=== PATIENT | female | born 1975 | race Caucasian/White ===

== ENCOUNTER 2017-04-01 02:03 | Emergency (ER) | payer OTHER ==
--- NOTE | 2017-04-01 02:23 | EDPHY ---
H & P Stated Complaint: CRAMPING DIARRHEA FELT NAUSEA AND LIKE PASSING OUT. HPI/ROS: HPI CHIEF COMPLAINT: Abdominal cramping, diarrhea, nausea, lightheadedness, presyncope HISTORY OF PRESENT ILLNESS: This patient very pleasant 42-year-old female she presents emergency room at 2:30 a.m. in the morning feeling as if she was going to pass out with lightheadedness, nausea, and abdominal cramping and diarrhea. Patient states she woke up from sleep she felt as if she had to go the bathroom with abdominal cramps she states when she went to try to get to the bathroom at home she felt very lightheaded she felt sweaty and nauseous and felt like she was going to pass out. She denies chest pain or shortness of breath. She states she does have abdominal cramps. She has been having watery brown diarrhea. She did have a beer and pizza tonight she tells me this is not normally what she eats. She also tells me distally for the past year she has had abdominal bloating and abdominal cramping and irregular stools, the includes sometimes diarrhea sometimes hard stool sometimes constipation. She states she is being followed by GI and thought to have bacterial overgrowth however they are still trying to figure out why she is having yearly abdominal bloating. Past Medical History: Denies significant medical history Past Surgical History: Denies significant surgical history except for Social History: Denies daily use of drugs alcohol tobacco products Family History: Noncontributory ROS REVIEW OF SYSTEMS: A comprehensive 10 point review of systems is otherwise negative aside from elements mentioned in the history of present illness. Exam Constitutional appears well nontoxic triage nursing summary reviewed, vital signs reviewed, awake/alert. Eyes normal conjunctivae and sclera, EOMI, PERRLA. HENT normal inspection, atraumatic, moist mucus membranes, no epistaxis, neck supple/ no meningismus, no raccoon eyes. Respiratory clear to auscultation bilaterally, normal breath sounds, no respiratory distress, no wheezing. Cardiovascular rate normal, regular rhythm, no murmur, no edema, distal pulses normal. Gastrointestinal soft, non-tender, no rebound, no guarding, normal bowel sounds, no distension, no pulsatile mass. Genitourinary no CVA tenderness. Musculoskeletal no midline vertebral tenderness, full range of motion, no calf swelling, no tenderness of extremities, no meningismus, good pulses, neurovascularly intact. Skin pink, warm, & dry, no rash, skin atraumatic. Neurologic awake, alert and oriented x 3, AAOx3, moves all 4 extremities equally, motor intact, sensory intact, CN II-XII intact, normal cerebellar, normal vision, normal speech. Psychiatric normal mood/affect. Heme/Lymph/Immune no lymphadenopathy. Differential Diagnosis: Includes but is not limited to in a particular order, dehydration, electrolyte disturbance, diarrheal illness, food borne illness. Medical Decision Making: Plan for this patient IV establishment, full hot worker, check EKG, check electrolytes, troponin, give IV fluids 1 L normal saline bolus, IV Zofran for nausea. Re-evaluate. Re-evaluation: EKG interpretation by me on record in [employer] system. Impression time of EKG 321: Sinus rhythm rate of 56, left axis deviation present. Otherwise no acute ischemia. 0404AM: Re-evaluation at this time this patient is feeling much better. She is not vomiting. Abdomen remained soft. No significant diarrhea here in the emergency room. She received IV Zofran and IV fluids she is feeling much better. Blood work has been reviewed is reassuring. Negative troponin nonischemic EKG. Electrolytes are appropriate. 0440AM: Re-evaluation patient resting comfortably 2nd L fluid is done. She is ready to go home. She understands return emergency room she develops worsening abdominal pain fever vomiting. Source: Patient - Personal History LMP (Females 10-55): 1-7 Days Ago Current Tetanus/Diphtheria Vaccine: Yes Current Tetanus Diphtheria and Acellular Pertussis (TDAP): Yes Tetanus Vaccine Date: 2006 - Medical/Surgical History Hx Asthma: No Hx Chronic Respiratory Disease: No Hx Diabetes: No Hx Cardiac Disease: No Hx Renal Disease: No Hx Cirrhosis: No Hx Alcoholism: No Hx HIV/AIDS: No Hx Splenectomy or Spleen Trauma: No Other PMH: DENIES - Social History Smoking Status: Never smoked Constitutional: Initial Vital Signs Heart Rate 58 L 04/01/17 02:18 Respiratory Rate 18 04/01/17 02:18 Blood Pressure 109/70 04/01/17 02:18 O2 Sat (%) 96 04/01/17 02:18 O2 Delivery Mode Room Air Allergies/Adverse Reactions: amoxicillin trihydrate [From Augmentin] Allergy (Verified 04/01/17 02:20) potassium clavula *RETIRED-07/09/12 [From Augmentin] Allergy (Verified 04/01/17 02:20) Home Medications: Medication Instructions Recorded NK [No Known Home Meds] 04/01/17 Medical Decision Making - Data Points Laboratory Results: Laboratory Results 04/01/17 03:00 04/01/17 03:00 04/01/17 04/01/17 03:00 03:00 WBC 13.12 10^3/uL H 10^3/uL (3.80-9.50) RBC 4.52 10^6/uL 10^6/uL (4.18-5.33) Hgb 14.4 g/dL g/dL (12.6-16.3) Hct 41.7 % % (38.0-47.0) MCV 92.3 fL fL (81.5-99.8) MCH 31.9 pg pg (27.9-34.1) MCHC 34.5 g/dL g/dL (32.4-36.7) RDW 12.6 % % (11.5-15.2) Plt Count 315 10^3/uL 10^3/uL (150-400) MPV 8.6 fL L fL (8.7-11.7) Neut % (Auto) 77.2 % H % (39.3-74.2) Lymph % (Auto) 13.5 % L % (15.0-45.0) [place] % (Auto) 6.9 % % (4.5-13.0) Eos % (Auto) 1.2 % % (0.6-7.6) Baso % (Auto) 0.8 % % (0.3-1.7) Nucleat RBC Rel Count 0.0 % % (0.0-0.2) Absolute Neuts (auto) 10.14 10^3/uL H 10^3/uL (1.70-6.50) Absolute Lymphs (auto) 1.77 10^3/uL 10^3/uL (1.00-3.00) Absolute Monos (auto) 0.90 10^3/uL H 10^3/uL (0.30-0.80) Absolute Eos (auto) 0.16 10^3/uL 10^3/uL (0.03-0.40) Absolute Basos (auto) 0.10 10^3/uL 10^3/uL (0.02-0.10) Absolute Nucleated RBC 0.00 10^3/uL 10^3/uL (0-0.01) Immature Gran % 0.4 % % (0.0-1.1) Immature Gran # 0.05 10^3/uL 10^3/uL (0.00-0.10) Sodium 140 mEq/L mEq/L (134-144) Potassium 4.0 mEq/L mEq/L (3.5-5.2) Chloride 104 mEq/L mEq/L (97-110) Carbon Dioxide 25 mEq/l mEq/l (22-31) Anion Gap 11 mEq/L mEq/L (8-16) BUN 22 mg/dL mg/dL (7-23) Creatinine 0.9 mg/dL mg/dL (0.6-1.0) Estimated GFR > 60 Glucose 104 mg/dL H mg/dL (70-100) Calcium 9.4 mg/dL mg/dL (8.5-10.4) Total Bilirubin 0.8 mg/dL mg/dL (0.1-1.4) Conjugated Bilirubin 0.5 mg/dL mg/dL (0.0-0.5) Unconjugated Bilirubin 0.3 mg/dL mg/dL (0.0-1.1) AST 28 IU/L IU/L (14-46) ALT 30 IU/L IU/L (9-52) Alkaline Phosphatase 48 IU/L IU/L (38-126) Troponin I < 0.012 ng/mL ng/mL (0-0.034) Total Protein 7.6 g/dL g/dL (6.3-8.2) Albumin 4.3 g/dL g/dL (3.5-5.0) Lipase 87.0 IU/L IU/L (23-300) Medications Given: Discontinued Medications Sodium Chloride (Ns) 1,000 mls @ 0 mls/hr IV ONCE ONE PRN Reason: Wide Open Stop: 04/01/17 02:25 Last Admin: 04/01/17 03:00 Dose: 1,000 mls Sodium Chloride (Ns) 1,000 mls @ 0 mls/hr IV ONCE ONE PRN Reason: Wide Open Stop: 04/01/17 04:05 Last Admin: 04/01/17 04:23 Dose: 1,000 mls Ondansetron HCl (Zofran) 4 mg IVP EDNOW ONE Stop: 04/01/17 02:32 Last Admin: 04/01/17 03:28 Dose: Not Given Departure - Departure Disposition: Home, Routine, Self-Care Clinical Impression: Dehydration Diarrhea Qualifiers: Diarrhea type: unspecified type Qualified Code(s): R19.7 - Diarrhea, unspecified Condition: Good Instructions: Dehydration (ED), Acute Diarrhea (ED) Additional Instructions: 1. Try to stay well-hydrated today. 2. No spicy fatty greasy foods eat a bland diet. Next 24-48 hours. 3. I would recommend he follow up with Gastroenterology. 4. Return emergency room if he develops worsening abdominal pain, fever, vomiting or bloody diarrhea. 5. We did send stool studies on your diarrhea I recommend calling in 24 hours for the results of them. Referrals: ELPIDIO REGALADO [Other] - As per Instructions Ranjana Taveras MD [Medical Doctor] - As per Instructions
[2017-04-01] MEDS ORDERED: NS 1,000 ML IV ONE ×2 (02:24→04:04)
[2017-04-01] MEDS ORDERED: ONDANSETRON 4 MG/2 ML VIAL IVP ONE (02:31)
[2017-04-01 03:08] LABS: % IMMATURE GRANULYOCYTES 0.4 % (0.0-1.1); ABSOLUTE IMMATURE GRANULOCYTES 0.05 10^3/uL (0.00-0.10); ADD DIFF? NO; ADD MORPH? NO; ADD SCAN? NO; ATYPICAL LYMPHOCYTE FLAG 10 (0-99); FRAGMENT RBC FLAG 0 (0-99); HEMATOCRIT 41.7 % (38.0-47.0); HEMOGLOBIN 14.4 g/dL (12.6-16.3); LEFT SHIFT FLG 0 (0-99); LIPEMIA HEMOLYSIS FLAG 90 (0-99); MEAN CELL HEMOGLOBIN 31.9 pg (27.9-34.1); MEAN CELL HEMOGLOBIN CONCENTR. 34.5 g/dL (32.4-36.7); MEAN CELL VOLUME 92.3 fL (81.5-99.8); MEAN PLATELET VOLUME 8.6 fL (8.7-11.7); PLATELET CLUMPS FLAG 0 (0-99); PLATELET COUNT 315 10^3/uL (150-400); RED BLOOD CELL COUNT 4.52 10^6/uL (4.18-5.33); RED CELL DISTRIBUTION WIDTH 12.6 % (11.5-15.2)
--- NOTE | 2017-04-01 03:23 | CPEKG ---
Heart Rate: 56 RR Interval: 1071 P-R Interval: 172 QRSD Interval: 100 QT Interval: 464 QTC Interval: 448 P [place]: 18 QRS [place]: -30 T Wave [place]: 27 EKG Severity - OTHERWISE NORMAL ECG - EKG Impression: SINUS RHYTHM EKG Impression: LEFT AXIS DEVIATION Electronically Signed By: Francisco Hendricks 01-Apr-2017 07:35:04
[2017-04-01 03:27] LABS: ALANINE AMINOTRANSFERASE 30 IU/L (9-52); ALBUMIN 4.3 g/dL (3.5-5.0); ALKALINE PHOSPHATASE 48 IU/L (38-126); ANION GAP 11 mEq/L (8-16); ASPARTATE AMINOTRANSFERASE 28 IU/L (14-46); BILIRUBIN,TOTAL 0.8 mg/dL (0.1-1.4); BILIRUBIN-CONJUGATED 0.5 mg/dL (0.0-0.5); BILIRUBIN-UNCONJUGATED 0.3 mg/dL (0.0-1.1); CALCIUM 9.4 mg/dL (8.5-10.4); CARBON DIOXIDE 25 mEq/l (22-31); CHLORIDE 104 mEq/L (97-110); CREATININE 0.9 mg/dL (0.6-1.0); GLOMERULAR FILTRATION RATE > 60; GLUCOSE 104 mg/dL (70-100); SODIUM 140 mEq/L (134-144); TOTAL PROTEIN 7.6 g/dL (6.3-8.2)
[2017-04-01 03:38] LABS: TROPONIN I < 0.012 ng/mL (0-0.034)
[2017-04-01 05:09] VITALS: BP 105/78; PULSE 64; RESP 16; O2SAT 97
== END 2017-04-01 05:09 | disposition home or self-care (01) ==
DX: E86.0 Dehydration (principal)
CPT/HCPCS: J2405